=== PATIENT | male | born 1965 | race American Indian/Alaskan Native ===

== ENCOUNTER 2019-07-22 01:38 | Emergency (ER) | payer SELFPAY ==
[2019-07-22 01:46] VITALS: BP 167/84
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
== END 2019-07-22 03:36 | disposition left against medical advice (07) ==
LOC: ED 01:38
DX: Z04.2 Encounter for examination and observation following work accident (principal); Z53.21 Procedure and treatment not carried out due to patient leaving prior to being seen by health care provider